=== PATIENT | male | born 1955 | race Caucasian/White ===

== ENCOUNTER 2023-02-26 22:34 | Inpatient (IN) | payer OTHER, MEDICARE ==
[~2023-02-26] VITALS: Ht 170.2 cm; Wt 88.0 kg
[2023-02-26 23:08] VITALS: BP_SYST 95
--- NOTE | 2023-02-26 23:08 | NUR ---
Patient to ER bed 4 to gown for evaluation. Side rails up. Report given to DANIEL CUELLAR(REG).
--- NOTE | 2023-02-26 23:15 | NUR ---
Received pt in bed 4, A&OX4, NAD noted. C/o of pain on r rib area and leg due to s/p fall at home this am. Reported that he went to [facility] and discharged earlier, but the still reports of pain and called 911 for pain.
--- NOTE | 2023-02-26 23:48 | NUR ---
ER Dr. Horvath at bedside examining patient.
--- NOTE | 2023-02-26 23:49 | NUR ---
# 20 gauge angiocath placed to . Use of asceptic technique. Opsite placed over site. Blood return noted. Flushed with 10 cc of normal saline. No evidence of infiltration noted. Patient tolerated well.
[2023-02-27] MEDS ORDERED: KETOROLAC TROMETHAMINE 15 MG VIAL IVP ONE
[2023-02-27] MEDS ORDERED: KETOROLAC TROMETHAMINE 15 MG VIAL ONE (00:06)
[2023-02-27 00:14] LABS: BASOPHILS # (AUTO) 0.1 K/uL (0.0-0.2); BASOPHILS % (AUTO) 1.2 % (0.0-2.0); EOSINOPHILS # (AUTO) 0.4 K/uL (0.0-0.4); EOSINOPHILS % (AUTO) 3.8 % (0.0-4.0); HEMOGLOBIN 12.2 g/dL (14.0-18.0); LYMPHOCYTES # (AUTO) 1.6 K/uL (1.0-5.5); LYMPHOCYTES % (AUTO) 16.2 % (20.5-51.5); MEAN CORPUSCULAR HEMOGLOBIN 32 pg (27-31); MEAN CORPUSCULAR HGB CONC 35 % (32-36); MEAN CORPUSCULAR VOLUME 91 fL (79.0-98.0); MONOCYTES # (AUTO) 0.6 K/uL (0.0-1.0); MONOCYTES % (AUTO) 6.6 % (1.7-9.3); NEUTROPHILS # (AUTO) 7.1 K/uL (1.8-7.7); NEUTROPHILS % (AUTO) 72.2 % (40.0-70.0); PLATELET COUNT (AUTO) 98 K/uL (130-430); RED BLOOD CELL COUNT(AUTO) 3.84 MIL/uL (4.2-6.2); RED CELL DISTRIBUTION WIDTH 13.3 % (9.0-15.0); WHITE BLOOD COUNT (AUTO) 9.8 K/uL (4.8-10.8)
[2023-02-27 00:26] LABS: ANION GAP 9 (5-15); CALCIUM 8.7 mg/dL (8.4-11.0); CHLORIDE 94 mmol/L (98-107); CREATININE 2.79 mg/dL (0.55-1.30); GFR AFRICAN AMERICAN 29 mL/min (>90); GLUCOSE 125 mg/dL (70-99); UREA NITROGEN, BLOOD 27 mg/dL (8-21)
[2023-02-27 00:33] LABS: ALANINE AMINOTRANSFERASE 165 U/L (12-78); ALBUMIN 3.8 g/dL (3.4-4.8); ASPARTATE AMINOTRANSFERASE 85 U/L (10-37); TOTAL BILIRUBIN 0.7 mg/dL (0.0-1.0)
--- NOTE | 2023-02-27 01:06 | NUR ---
COVID SAMPLE COLLECTED AND SENT TO LAB
[2023-02-27] MEDS ORDERED: LISI-209 PO (01:12)
[2023-02-27] MEDS ORDERED: CARV3.1246 PO (01:12)
[2023-02-27] MEDS ORDERED: ASPI-1393 PO (01:12)
[2023-02-27] MEDS ORDERED: LIP40 PO (01:12)
[2023-02-27] MEDS: NACL 0.9% 1,000 ML IV SCH (01:15)
--- NOTE | 2023-02-27 01:15 | NUR ---
Note maciejpapi in ED - 02/27/23 at 0118 by [email or web address] Admit bed requested Patient will be admitted to care of Bettye Daley Admitted to unit. Diagnosis Inpatient (Yes) Observation (No) Orientation concerns or request close to nursing station (No) Covid Status On vent or bipap Isolation requirements Needs a sitter From Home (Yes) Requires Dialysis (No) Med Rec Completed (Yes)
--- NOTE | 2023-02-27 01:18 | NUR ---
Admit bed requested Patient will be admitted to care of Bettye Daley Admitted to Tele unit. Diagnosis Chest Pain Inpatient (Yes) Observation (No) Orientation concerns or request close to nursing station (No) Covid Status (pending) On vent or bipap (NO) Isolation requirements (NO) Needs a sitter (NO) From Home (Yes) Requires Dialysis (NO) Med Rec Completed (Yes)
--- NOTE | 2023-02-27 01:40 | NUR ---
Covid Negative status for admit
--- NOTE | 2023-02-27 02:15 | NUR ---
ADMISSION NOTE Received patient from ER via gurney. Patient admitted with diagnosis of CHEST PAIN . Patient is awake, alert, oriented X 4. Patient oriented to hospital room, call light, toileting, pain management and safety-teach back done. Patient informed that their room number is 106A. Personal belongings checked and Belongings List documented. Call light within reach.
--- NOTE | 2023-02-27 02:45 | NUR ---
Patient will be admitted to care of Didier Daley. Admitted to Tele unit. Will go to room 106A. Belongings list completed. Complete and up to date summary report printed. SBAR report to be given at bedside to ALISA Puga with opportunity for questions.
--- NOTE | 2023-02-27 02:50 | NUR ---
Mr Lundberg is admitted to room 106-A. He has been assessed as indicated. He has been made as comfortable as possible. He has no s/s of distress or discomfort and resting quietly
[2023-02-27 02:56] VITALS: BP_SYST 101
--- NOTE | 2023-02-27 03:14 | NUR ---
2 LIGHTERS Found 2 lighters in pt's jacket pocket. Informed pt that he cannot keep these in the room. He stated he doesn't need them and that "they're somebody else's" and to "throw them out". Confirmed with pt that they will be properly disposed of
--- NOTE | 2023-02-27 07:36 | NUR ---
Handoff has been given to JO
[2023-02-27 08:00] VITALS: BP_SYST 100
[2023-02-27 08:11] LABS: BASOPHILS # (AUTO) 0.1 K/uL (0.0-0.2); BASOPHILS % (AUTO) 1.1 % (0.0-2.0); EOSINOPHILS # (AUTO) 0.5 K/uL (0.0-0.4); EOSINOPHILS % (AUTO) 7.3 % (0.0-4.0); HEMATOCRIT 40.5 % (36-54); HEMOGLOBIN 13.9 g/dL (14.0-18.0); LYMPHOCYTES # (AUTO) 1.7 K/uL (1.0-5.5); LYMPHOCYTES % (AUTO) 23.2 % (20.5-51.5); MEAN CORPUSCULAR HEMOGLOBIN 32 pg (27-31); MEAN CORPUSCULAR HGB CONC 34 % (32-36); MEAN CORPUSCULAR VOLUME 94 fL (79.0-98.0); MONOCYTES # (AUTO) 0.6 K/uL (0.0-1.0); MONOCYTES % (AUTO) 7.9 % (1.7-9.3); NEUTROPHILS # (AUTO) 4.5 K/uL (1.8-7.7); NEUTROPHILS % (AUTO) 60.5 % (40.0-70.0); PLATELET COUNT (AUTO) 83 K/uL (130-430); RED CELL DISTRIBUTION WIDTH 13.4 % (9.0-15.0); WHITE BLOOD COUNT (AUTO) 7.4 K/uL (4.8-10.8)
[2023-02-27 08:20] LABS: CALCIUM 8.8 mg/dL (8.4-11.0); CREATININE 2.69 mg/dL (0.55-1.30)
--- NOTE | 2023-02-27 08:26 | NUR ---
OPENING NOTES: PT IN BED WITH EYES CLOSED HAVING BLOOD DRAW FROM MOTOR SCOOTER REPAIRER. BREATHING IS EVEN AND UNLABORED ON RA 96%. IV ALARM IS RINGING WITH HIGH PRESSURE. IV IS NOT PATENT, CATHETER OF IV TAPED NOT IN PATIENT ARM FULLY. INFORMED PATIENT A NEW IV WILL BE PLACED. SAT UP PATIENT AND PREPARED TRAY FOR PATIENT TO EAT BREAKFAST. NO S/S OF DISTRESS. PAIN OF RIGHT HAND REPORTED. NOTED SWELLING AND ELEVATED ARM WITH PILLOW SUPPORT. EDUCATED PT ON USE OF CALL LIGHT SHOULD HE NEED ANYTHING. ALL NEEDS MET AT THIS TIME, SAFETY CHECKS MADE AND CALL LIGHT WITHIN REACH.
--- NOTE | 2023-02-27 08:51 | NUR ---
CONSULTATION: REASON FOR CONSULT: CHEST PAIN CONSULTING PHYSICIAN: BLANCA ORDERED BY: WEST SPOKE WITH DR RIOS HIMSELF AND IS AWARE OF CONSULT
[2023-02-27] MEDS ORDERED: NACL 0.9% 1,000 ML IV SCH (09:15)
--- NOTE | 2023-02-27 10:06 | NUR ---
CONSULTATION: REASON FOR CONSULT: RENAL INSUFF CONSULTING PHYSICIAN: Karol LINDA ORDERED BY: Didier AVELAR SPOKE WITH MARIZA DEE [phone]
[2023-02-27] MEDS: APIXABAN 2.5 MG TABLET PO SCH ×2 (10:38→20:20)
--- NOTE | 2023-02-27 10:46 | NUR ---
PATIENT IN BED WITH EYES CLOSED. RESPONDED TO NAME. TOLERATED MORNING MEDICATION WELL. SAFETY CHECKS MADE AND PATIENT EDUCATED ON USE OF CALL LIGHT SHOULD HE NEED ANYTHING. CALL LIGHT WITHIN REACH.
[2023-02-27 11:25] VITALS: BP_SYST 90
[2023-02-27 15:20] VITALS: BP_SYST 104
--- NOTE | 2023-02-27 16:14 | NUR ---
PT GOT ACCEPTED WITH [facility], PROVIDING IN-HOME (PHYSICAL THERAPY) PHONE#[phone] (EMPEROR).
--- NOTE | 2023-02-27 16:48 | NUR ---
: SPOKE WITH DR AVELAR. INFORMED HIM THAT IT HAS BEEN DIFFICULT TO GET AN IV LINE IN THE PATIENT AND THAT THE [facility] IS HAVING A HARD TIME DRAWING BLOOD ON PATIENT. DR AVELAR ORDERED A PICC LINE FOR PATIENT. ORDER PLACED. Addendum: 02/27/23 at 1725 by Hellen Huff LVN CONSENT SIGNED AND IN PATIENT CHART
--- NOTE | 2023-02-27 17:49 | NUR ---
P.T. NOTES P.T. EVAL COMPLETED; REFER TO EVAL FOR DETAILS.
[2023-02-27 18:52] LABS: INR 1.2 (0.80-1.20); PROTHROMBIN TIME 12.1 SECS (9.5-12.5)
--- NOTE | 2023-02-27 19:30 | NUR ---
OPENING NOTE PT LYING IN BED AND EYES CLOSED. BREATHING EVEN AND NONLABORED. BP 88/55. PROVIDED WATER, ELEVATED LEGS, HEAD OF BED DOWN. WILL CHECK BP 30 LATER. NO PAIN REPORTED. SAFETY CHECKS IN PLACE. BED ALARM ON. CONTINUE TO MONITOR
--- NOTE | 2023-02-27 19:34 | NUR ---
closing notes: pt in bed with eyes closed. no s/s of distress or pain reported. breathing is even and unlabored on ra 98%. all need met at this time, safety checks made and call light within reach. will endorse to car shifter nurse.
[2023-02-27 20:00] VITALS: BP_SYST 93
[2023-02-27] MEDS: ATORVASTATIN 20 MG TABLET PO SCH (20:18)
[2023-02-27] MEDS: CARVEDILOL 3.125 MG TABLET (COREG) PO SCH (20:25)
--- NOTE | 2023-02-27 21:00 | NUR ---
HOLD MED PT'S BP 93/53. HOLD COREG D/T DECREASED BP.
--- NOTE | 2023-02-27 22:35 | NUR ---
PICC LINE PLACED PICC LINE ON PHUONG 2LUMEN AND GOOD TO USE.
--- NOTE | 2023-02-27 23:14 | NUR ---
NS RESTART PICC LINE PHUONG 2 LUMEN GOOD TO USE. CONFIRMED PATENCY. RESTARTED NS @50.
[2023-02-28] VITALS (9 sets, daily range): BP systolic 88–118
--- NOTE | 2023-02-28 00:05 | NUR ---
LOW BP PT'S BP 87/49. CALLED DR. RIOS TO NOTIFY HIS CONDITION @0000 02/28/23. DR. RIOS ORDER 250 NS BOLUS NOW. CHECK BP AGAIN. IF THE BP STILL BELOW 100, GIVE 25% ALBUMIN. MAINTAIN NS IV FLUID RATE @ 150mL.
[2023-02-28] MEDS ORDERED: NS 250 ML IV ONE (00:15)
--- NOTE | 2023-02-28 00:59 | NUR ---
BP AFTER FINISHING 250 NS BOLUS, PT'S BP 102/55. CONTINUE TO MONITOR
--- NOTE | 2023-02-28 05:23 | NUR ---
ROUNDING NOTE PT LYING IN BED AND EYES CLOSED. BREATHING EVEN AND NONLABORED. OFFERED URINAL AND PT ABLE TO URINATE 300cc. SAFETY CHECKS IN PLACE. CONTINUE TO MONITOR.
[2023-02-28 06:44] LABS: BASOPHILS # (AUTO) 0.1 K/uL (0.0-0.2); BASOPHILS % (AUTO) 0.8 % (0.0-2.0); EOSINOPHILS # (AUTO) 0.4 K/uL (0.0-0.4); EOSINOPHILS % (AUTO) 5.2 % (0.0-4.0); HEMATOCRIT 37.4 % (36-54); HEMOGLOBIN 12.8 g/dL (14.0-18.0); LYMPHOCYTES # (AUTO) 1.5 K/uL (1.0-5.5); MEAN CORPUSCULAR HEMOGLOBIN 32 pg (27-31); MEAN CORPUSCULAR HGB CONC 34 % (32-36); MEAN CORPUSCULAR VOLUME 94 fL (79.0-98.0); MONOCYTES # (AUTO) 0.6 K/uL (0.0-1.0); MONOCYTES % (AUTO) 8.1 % (1.7-9.3); NEUTROPHILS # (AUTO) 4.5 K/uL (1.8-7.7); NEUTROPHILS % (AUTO) 64.9 % (40.0-70.0); PLATELET COUNT (AUTO) 84 K/uL (130-430)
[2023-02-28 07:01] LABS: CALCIUM 8.2 mg/dL (8.4-11.0); CREATININE 2.37 mg/dL (0.55-1.30)
[2023-02-28 07:15] LABS: ALBUMIN 3.2 g/dL (3.4-4.8); THYROID STIMULATING HORMONE 68.58 uIu/mL (0.34-4.82); TOTAL BILIRUBIN 0.7 mg/dL (0.0-1.0)
--- NOTE | 2023-02-28 07:29 | NUR ---
CLOSING NOTE PT LYING IN BED AND EYES CLOSED. BREATHING EVEN AND NONLABORED. NO PAIN REPORTED. SAFETY CHECKS IN PLACE. BED ALARM ON. ENDORSED TO DAY SHIFT NURSE
--- NOTE | 2023-02-28 07:55 | NUR ---
OPENING NOTES: PT IN BED WITH EYES CLOSED. REPOSITIONED PATIENT WITH LEAD SOFTWARE DEVELOPMENT ENGINEER. BREATHING IS EVEN AND UNLABORED ON RA 98%. NO S/S OF DISTRESS OR PAIN REPORTED. ALL NEEDS MET AT THIS TIME, SAFETY CHECKS MADE, BED ALARM ON AND CALL LIGHT WITHIN REACH.
[2023-02-28] MEDS: NACL 0.9% 1,000 ML IV SCH ×2 (08:40)
[2023-02-28] MEDS ORDERED: NALOXONE HCL 0.4 MG/ML AMP (NARCAN) IVP PRN (08:45)
[2023-02-28] MEDS ORDERED: DEXTROSE 50% JECT 50 ML DISP.SYRIN IVP PRN (08:45)
[2023-02-28] MEDS ORDERED: HYDROcodone/ACETAMIN 5-325 MG TAB (NORCO/ VICODIN) PO PRN (08:45)
[2023-02-28] MEDS ORDERED: lisinopriL 5 MG TABLET PO SCH (09:00)
[2023-02-28] MEDS ORDERED: LEVOTHYROXINE SODIUM 0.05 MG TABLET PO ONE (09:15)
[2023-02-28] MEDS: ASPIRIN 81 MG TABLET(ECOTRIN) PO SCH (09:47)
[2023-02-28] MEDS: CARVEDILOL 3.125 MG TABLET (COREG) PO SCH ×2 (09:47→21:00)
[2023-02-28] MEDS: APIXABAN 2.5 MG TABLET PO SCH ×2 (09:49→21:44)
[2023-02-28] MEDS: INSULIN LISPRO SLIDING SCALE 100 UNITS/ML, 3 ML VIAL (humaLOG) SUBCUT PRN ×3 (11:47→21:08)
--- NOTE | 2023-02-28 12:13 | NUR ---
[facility] spoke with patient insurance workforce planner Ita [phone].
--- NOTE | 2023-02-28 17:09 | NUR ---
>>>PT NOTES<<< PATIENT REFUSED PHYSICAL THERAPY TODAY. STATES HE IS TIRED AND HIS RIBS HURT. WILL FOLLOW UP TOMORROW, Sunday03/01/23.
[2023-02-28] MEDS: INSULIN NPH/REGULAR 70-30, 100 UNITS/ML, 3 ML VIAL SUBCUT SCH (17:32)
--- NOTE | 2023-02-28 18:19 | NUR ---
CLOSING NOTES: PATIENT IN BED WITH EYES CLOSED. RESPONDED TO NAME. REPOSITIONED PATIENT TO EAT DINNER. TURNED ON TV AT PATIENT REQUEST. NO S/S OF DISTRESS. PAIN REPORTED BY PATIENT LEFT RIBS. PATIENT WAS GIVEN PAIN MEDS AT 1600. PATIENT SAID HE WAS IN LESS PAIN AFTER BEING REPOSITIONED. IV FLUIDS ARE RUNNING. ALL NEEDS MET AT THIS TIME, SAFETY CHECKS MADE AND CALL LIGHT WITHIN REACH. WILL ENDORSE TO ACTIVITY LEADER NURSE.
--- NOTE | 2023-02-28 19:29 | NUR ---
OPENING NOTE PT LYING IN BED AND EYES OPEN. A/OX4. BREATHING EVEN AND NONLABORED ON RA. NO S/S OF ACUTE DISTRESS OR PAIN. IV FLUID FLOW THROUGH THE PICC LINE. SAFETY CHECKS IN PLACE. CALL LIGHT IN REACH. CONTINUE TO MONITOR
[2023-02-28] MEDS: ATORVASTATIN 20 MG TABLET PO SCH (21:02)
--- NOTE | 2023-02-28 21:37 | NUR ---
MEDICATION VERIFICATION NOTIFIED PT'S BP WAS 86/[address] RIOS. RECHECKED 101/59. DR. RIOS WANTS TO HOLD COREG.
--- NOTE | 2023-02-28 21:45 | NUR ---
MEDICATION VERIFICATION PT'S PLATELET COUNT 84. NOTIFIED DR. RIOS @ [phone] AND ASKED IF HE STILL GIVE ELIQUIS. SAID OK TO GIVE IT.
[2023-03-01] VITALS: BP_SYST 95
--- NOTE | 2023-03-01 03:30 | NUR ---
ROUNDING NOTE PT WANTED TO USE BEDSIDE COMMODE. ASSISTED PT TO GET OUT FROM THE BED. PT TOLERATED. PROVIDED NEW BED LINEN. NO BM. 200 mL URINE. SAFETY CHECKS IN PLACE. BED ALARM ON. CALL LIGHT IN REACH. CONTINUE TO MONITOR
[2023-03-01] MEDS: LEVOTHYROXINE SODIUM 0.05 MG TABLET PO SCH (06:12)
--- NOTE | 2023-03-01 06:18 | NUR ---
LOW GLUCOSE PT'S BLOOD GLUCOSE 57. GIVEN 8oz ORANGE JUICE. WILL RECHECK 30 MINS LATER.
--- NOTE | 2023-03-01 06:46 | NUR ---
GLUCOSE BLOOD GLUCOSE 85.
[2023-03-01] MEDS: INSULIN NPH/REGULAR 70-30, 100 UNITS/ML, 3 ML VIAL SUBCUT SCH ×2 (06:48→17:39)
--- NOTE | 2023-03-01 07:49 | NUR ---
OPENING NOTES: RECEIVED BEDSIDE SBAR FROM PM SHIFT NURSE, NO S/S OF ANY DISTRESS, NON LABOR BREATHING, IV INTACT, PATIENT RESTING IN BED WITH EYES CLOSED, BED AT LOCKED AND LOW POSITION , CALL LIGHT IN REACH, ALL SAFETY CHECKS DONE AND WILL DO THOUGHT THE DAY.
[2023-03-01 07:57] LABS: CALCIUM 7.9 mg/dL (8.4-11.0); CREATININE 2.01 mg/dL (0.55-1.30)
[2023-03-01 07:58] LABS: BASOPHILS # (AUTO) 0.1 K/uL (0.0-0.2); BASOPHILS % (AUTO) 0.8 % (0.0-2.0); EOSINOPHILS # (AUTO) 0.4 K/uL (0.0-0.4); HEMATOCRIT 35.2 % (36-54); HEMOGLOBIN 12.1 g/dL (14.0-18.0); LYMPHOCYTES # (AUTO) 1.7 K/uL (1.0-5.5); LYMPHOCYTES % (AUTO) 24.3 % (20.5-51.5); MEAN CORPUSCULAR HEMOGLOBIN 32 pg (27-31); MEAN CORPUSCULAR HGB CONC 35 % (32-36); MEAN CORPUSCULAR VOLUME 92 fL (79.0-98.0); MONOCYTES # (AUTO) 0.6 K/uL (0.0-1.0); MONOCYTES % (AUTO) 7.9 % (1.7-9.3); NEUTROPHILS # (AUTO) 4.4 K/uL (1.8-7.7); PLATELET COUNT (AUTO) 100 K/uL (130-430); RED BLOOD CELL COUNT(AUTO) 3.81 MIL/uL (4.2-6.2); WHITE BLOOD COUNT (AUTO) 7.1 K/uL (4.8-10.8)
[2023-03-01 07:59] LABS: ALBUMIN 3.1 g/dL (3.4-4.8); TOTAL BILIRUBIN 0.6 mg/dL (0.0-1.0)
[2023-03-01 08:00] VITALS: BP_SYST 96
[2023-03-01] MEDS: CARVEDILOL 3.125 MG TABLET (COREG) PO SCH ×2 (08:34→20:18)
[2023-03-01] MEDS: NACL 0.9% 1,000 ML IV SCH ×2 (08:35→13:37)
[2023-03-01] MEDS: ASPIRIN 81 MG TABLET(ECOTRIN) PO SCH (08:38)
[2023-03-01] MEDS: APIXABAN 2.5 MG TABLET PO SCH ×2 (08:43→20:25)
--- NOTE | 2023-03-01 08:52 | NUR ---
PT REFERRALS TO SNF: ([facility], [facility], [facility], [facility]) WAITING FOR ACCEPTANCE.
[2023-03-01 11:21] VITALS: BP_SYST 109
--- NOTE | 2023-03-01 12:11 | NUR ---
PT IS GOING BACK TO [facility] (PREVIOUS HOME) PHONE#[phone]. [facility] ACCEPTED PT. ENDORSED AUTHORIZATION #[id number].
--- NOTE | 2023-03-01 13:02 | NUR ---
TWO ATTEMPTS MADE TO SEE PATIENT FOR PT TREATMENT HOWEVER PATIENT REFUSED. STATES HIS RIBS HURT AND HE IS TOO TIRED. WILL TRY AGAIN TOMORROW.
[2023-03-01 17:27] VITALS: BP_SYST 116
--- NOTE | 2023-03-01 18:09 | NUR ---
PICC LINE DRESSING CHANGED. CLEAN DRY AND INTACT
--- NOTE | 2023-03-01 18:46 | NUR ---
CLOSING NOTES: PATIENT REMAINED STABLE THOUGHT THE DAY, NO S/S OF ANY DISTRESS, NON LABOR BREATHING, IV INTACT, BED LOCKED AND LOW, ALL SAFETY CHECKS DONE THOUGHT THE DAY, WILL GIVE PM SHIFT NURSE BEDSIDE SBAR
[2023-03-01 19:30] VITALS: BP_SYST 92
[2023-03-01] MEDS: ATORVASTATIN 20 MG TABLET PO SCH (20:18)
[2023-03-01] MEDS: INSULIN LISPRO SLIDING SCALE 100 UNITS/ML, 3 ML VIAL (humaLOG) SUBCUT PRN (20:24)
[2023-03-02] VITALS: BP_SYST 110
--- NOTE | 2023-03-02 06:25 | NUR ---
CLOSING NOTE PATIENT SLEPT WELL THROUGHOUT THE NIGHT, NO COMPLAINTS OF CHEST PAIN OR SHORTNESS OF BREATH. PATIENT WAS COOPERATIVE TO CARE. AT THIS TIME, HE IS RESTING IN BED, STABLE, NO SIGNS OF RESPIRATORY DISTRESS. CALL LIGHT PLACED WITHIN REACH. BED IS LOCKED, ALARMED, AND AT THE LOWEST LEVEL. FALL, SAFETY, RESPIRATORY AND ASPIRATION PRECAUTIONS HAVE BEEN IN PLACE THROUGHOUT THE SHIFT. WILL CONTINUE TO MONITOR UNTIL REPORT IS GIVEN AT BEDSIDE TO AM NURSE.
[2023-03-02] MEDS: LEVOTHYROXINE SODIUM 0.05 MG TABLET PO SCH (06:31)
--- NOTE | 2023-03-02 07:34 | NUR ---
OPENING NOTES: RECEIVED BEDSIDE SBAR FROM PM SHIFT NURSE, NO S/S OF ANY DISTRESS, NON LABOR BREATHING, SKIN INTACT, IV INTACT CLEAN AND DRY, BED AT LOW AND LOCKED POSITION CALL LIGHT IN REACH, ALL SAFETY CHECKS DONE AND WILL DO THOUGHT THE DAY. WILL MONITOR PATIENT AND GIVE MEDS PER ORDERS
[2023-03-02] MEDS: CARVEDILOL 3.125 MG TABLET (COREG) PO SCH (09:00)
[2023-03-02] MEDS: ASPIRIN 81 MG TABLET(ECOTRIN) PO SCH (09:12)
[2023-03-02] MEDS: APIXABAN 2.5 MG TABLET PO SCH (09:13)
[2023-03-02] MEDS: NACL 0.9% 1,000 ML IV SCH (09:37)
[2023-03-02] MEDS ORDERED: HYDR-3917 PO (09:38)
[2023-03-02] MEDS ORDERED: SITA50TA3 PO (09:44)
--- NOTE | 2023-03-02 14:11 | NUR ---
Patient accepted at [facility]-Number for [phone], [facility] to transport at 2:30 PM . Patient agreed to transport.
--- NOTE | 2023-03-02 14:13 | NUR ---
[facility] ([address] [place] [address]) [phone] SPOKE WITH AVINASH CUELLAR. [facility] WILL FOREST OFFICER AT 1430. PATIENT IS STABLE NO S/S OF ANY DISTRESS, NON LABOR BREATHING, SKIN INTACT WILL LEAVE IN PICC LINE. PATIENT IS AGREE TO BE TRANSFER TODAY.
[2023-03-02 14:24] VITALS: BP_SYST 111
--- NOTE | 2023-03-02 15:31 | NUR ---
D/C Patient Patient given medication reconciliation form and D/C instructions. Exit Care provided. Patient verbalized understanding. MD discussed with patient the results and treatment provided. Ambulatory with steady gait for discharge to home. Patient in stable condition, ID band removed. PICC LINE WILL STAY IN intact and dressing applied, no active bleeding. Patient educated on pain management. All belongings sent with patient.
--- NOTE | 2023-03-02 15:45 | NUR ---
PHYSICAL THERAPY CO-SIGN The Physical Therapy Progress Notes documented by Sales Enablement Specialist have been reviewed. Reviewed/Co-Signed by: Ke Moscoso Documentation Done by:ROBERT CARTWRIGHT Addendum: 03/02/23 at 1545 by Ke Moscoso PT Amended: Links added.
== END 2023-03-02 15:50 | DRG 144 ==
LOC: SED 22:34 → STU 02-27 01:02
PROVIDERS: ADMIT General Practice; ATTEND General Practice
PROC: 02HV33Z Insertion of Infusion Device into Superior Vena Cava, Percutaneous Approach (ICD-10-PCS; principal; 2023-02-27)
PROC: B548ZZA Ultrasonography of Superior Vena Cava, Guidance (ICD-10-PCS; 2023-02-27)
DX: S22.32XA Fracture of one rib, left side, initial encounter for closed fracture (principal); N17.0 Acute kidney failure with tubular necrosis; E87.1 Hypo-osmolality and hyponatremia; E11.22 Type 2 diabetes mellitus with diabetic chronic kidney disease; R53.81 Other malaise; R26.81 Unsteadiness on feet; R74.01 Elevation of levels of liver transaminase levels; I25.2 Old myocardial infarction; I48.20 Chronic atrial fibrillation, unspecified; W19.XXXA Unspecified fall, initial encounter; I12.9 Hypertensive chronic kidney disease with stage 1 through stage 4 chronic kidney disease, or unspecified chronic kidney disease; N18.4 Chronic kidney disease, stage 4 (severe); Z79.01 Long term (current) use of anticoagulants; Z95.0 Presence of cardiac pacemaker; Z20.822 Contact with and (suspected) exposure to COVID-19
CPT/HCPCS: 36415; 71045; 73564; 76770; 80048; 80053; 83037; 83880; 84443; 84484; 85025; 85379; 85610-TC; 85730-TC; 93005; 93306; 93970; 93971; 96361; 96374; 97112-GP; 97116-GP; 97530-GP; 99285; G0378; J1815; J1885